=== PATIENT | male | born 1940 | race Hispanic/Latino ===

== ENCOUNTER 2017-05-22 05:51 | Inpatient (IN) | payer MEDICARE ==
[2017-05-22] MEDS ORDERED: CEFAZOLIN/Water 2 GM/20 ML SYRINGE ONE ×2 (06:39→14:56)
[2017-05-22 06:44] LABS: Hemoglobin 12.5 g/dL (14.0-18.0); Mean Corpuscular HGB CONC 32.1 g/dL (32.0-36.0); Mean Corpuscular Hemoglobin 31.2 pg (27.0-31.0); Mean Corpuscular Volume 97.3 fl (80.0-94.0); Mean Platelet Volume 5.7 fL (7.4-10.4); Platelet Count 323 thou/uL (130-400); RBC Distribution Width 11.7 % (11.5-14.5); Red Blood Cell (RBC) Count 4.02 mill/uL (4.70-6.10); White Blood Cell (WBC) Count 8.4 thou/uL (4.8-10.8)
[2017-05-22] MEDS ORDERED: Fentanyl 100 MCG/2 ML VIAL ONE ×2 (06:50→09:41)
[2017-05-22 06:58] LABS: Anion Gap 13 mmol/L (10-20); BUN (Urea Nitrogen) 17 mg/dL (8.4-25.7); Calc. Creatinine Clearance 80 mL/min (70-130); Calcium 10.1 mg/dL (7.8-10.44); Carbon Dioxide 26 mmol/L (23-31); Chloride 101 mmol/L (98-107); Estimated GFR-MDRD 87; Glucose 99 mg/dL (83-110); Potassium 4.1 mmol/L (3.5-5.1); Sodium 136 mmol/L (136-145)
[2017-05-22 07:01] LABS: PTT 30.9 SEC (22.9-36.1); Prothrombin Time 13.6 SEC (12.0-14.7)
[2017-05-22] MEDS ORDERED: Bupivacaine/Epinephrine 0.25% 30 ML VIAL ONE (07:41)
[2017-05-22] MEDS ORDERED: Talc 30 GM AEROSOL CAN ONE (08:45)
[2017-05-22] MEDS ORDERED: Propofol 200 MG/20 ML VIAL ONE (09:00)
[2017-05-22] MEDS ORDERED: Ondansetron HCl/PF 4 MG/2 ML Vial ONE (09:00)
[2017-05-22] MEDS ORDERED: PHENYLEPHRINE-NS 100 MCG/ML 10 ML SYRINGE ONE (09:00)
[2017-05-22] MEDS ORDERED: Glycopyrrolate 0.2 MG/ML 5 ML SYRINGE ONE (09:00)
[2017-05-22] MEDS ORDERED: Lidocaine 1% PF 5 ML VIAL ONE (09:00)
--- NOTE | 2017-05-22 09:17 | OP ---
DATE OF PROCEDURE: 05/22/2017 PREOPERATIVE DIAGNOSIS: Recurrent right pleural effusion. POSTOPERATIVE DIAGNOSIS: Recurrent right pleural effusion. PROCEDURE: 1. Right thoracoscopy with multiple biopsies of chest wall implants. 2. Wedge resection of right lower lobe. 3. Mechanical and talc pleurodesis. 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 1.5 liters of fluid within the chest on e ntering the chest - this was also sent for cytology again. DRAINS: 32-Welsh chest tube x1. PROCEDURE IN DETAIL: After consent was obtained, the patient was brought to the operating room and p laced in the supine position on the operating room table. Appropriate anesthetic monitor was placed and general endotracheal anesthesia induced. A double lumen tube was placed and a flexible fiberopti c bronchoscopy was performed to confirm positioning. The patient was then positioned in the left lat eral decubitus position. Joints were appropriately padded and SCDs used. Right chest wall was prepped and draped in usual sterile fashion. Skin incision was made in the ante rior axillary line inferiorly on the right chest wall and 11 Welsh port placed. The camera was inse rted. There were implants in the upper and lower chest that were noted. Multiple areas were biopsie d. Frozen section returned as above. There was also implants in the right lower lobe which a small wedge resection was performed taking a small portion of the right lower lobe to send for pathologic e xam. After evacuating all the fluid within the chest approximately 1.5 liters had been taken. The chest wall was then mechanically abraded. 5 grams of talc was infused. A 32-Welsh chest tubes placed through the anterior port site to the apex and secured with silk suture. The lung was then re expanded. The 2 separate port sites were then closed in layers and Dermabond applied to the skin. T he patient was awakened, extubated, and transferred to the recovery room in stable condition. Needle , sponge, and instrument counts were all reported as correct at the end of the procedure.
[2017-05-22] MEDS ORDERED: HYDROcodone/Acetaminophen 5/325 mg Tablet PO PRN (09:52)
[2017-05-22] MEDS ORDERED: Ondansetron HCl/PF 4 MG/2 ML Vial IVP PRN ×2 (09:52→09:53)
[2017-05-22] MEDS ORDERED: Insulin Regular 300 UNITS/3 ML VIAL SC PRN (09:52)
[2017-05-22] MEDS ORDERED: Fentanyl 100 MCG/2 ML VIAL SLOW IVP PRN ×2 (09:52)
[2017-05-22] MEDS ORDERED: Promethazine HCl 25 MG/ML VIAL IM PRN (09:53)
[2017-05-22] MEDS ORDERED: Promethazine HCl 25 MG/ML VIAL SLOW IVP PRN (09:53)
[2017-05-22] MEDS ORDERED: Morphine 4 MG/ML VIAL SLOW IVP PRN ×2 (11:30)
--- NOTE | 2017-05-22 12:16 | RAD ---
PORTABLE AP CHEST XRAY: DATE: 05/22/17. HISTORY: Post thoracostomy. COMPARISON: 04/16/17. FINDINGS: Postsurgical changes related to CABG are again seen. There has been interval placement of a right-si ded thoracostomy tube with the tip overlying the right suprahilar region. The previously noted moder ately large right pleural effusion has almost completely resolved. There is mild pleural-based densi ty on the right primarily at the right lung base, which may be related to either a small amount of re sidual pleural fluid or pleural thickening. Atelectasis is present at the right lung base. Minimal pleural-based density is also seen at the right lung apex. No pneumothorax is visualized. The left lung remains clear. Cardiac silhouette is within normal limits. There is prominence of the right hi lar structures, but this may be attributable to pleural fluid and/or pleural thickening superimposed on the right cardiac border. However, given the asymmetry and appearance of this finding, continued followup is recommended and PA and lateral chest x-ray may be helpful. No other interval change. IMPRESSION: 1. Interval placement of a right-sided thoracostomy tube with significant interval improvement a nd almost complete resolution of the right pleural effusion. 2. Pleural-based densities predominantly laterally which extend to the right lung apex which may be related to either a small amount of residual pleural fluid versus pleural thickening. In additio n, there is prominence along the right cardiac border and right hilar region which is asymmetric comp ared to the left. This could also be related to a combination of pleural-based density and the right cardiac border. However, followup examination is recommended. POS: [facility]
[2017-05-22] MEDS ORDERED: HYDROcodone/Acetaminophen 5/325 mg Tablet ONE (14:27)
[2017-05-22 16:58] VITALS: BMI 25.1
[2017-05-22] MEDS: Sodium Chloride 0.9% 1,000 ML IV SCH ×2 (17:18→21:23)
[2017-05-22] MEDS: CEFAZOLIN/Water 2 GM/20 ML SYRINGE SLOW IVP SCH ×2 (17:18→21:44)
[2017-05-22] MEDS: Atorvastatin Calcium 20 MG TAB PO SCH (21:24)
[2017-05-22] MEDS: Metoprolol Tartrate 25 MG TAB PO SCH (21:30)
[2017-05-23] MEDS: HYDROcodone/Acetaminophen 5/325 mg Tablet PO PRN ×4 (00:29→19:52)
[2017-05-23 05:11] LABS: #Lymphocytes 1.3 thou/uL (1.20-3.40); %Basophils 0.2 % (0.0-1.0); %Eosinophils 0.2 % (0.0-10.0); %Lymphocytes 9.3 % (21.0-51.0); %Monocytes 6.9 % (0.0-10.0); %Neutrophils 83.4 % (42.0-75.0); Hemoglobin 11.3 g/dL (14.0-18.0); Mean Corpuscular HGB CONC 32.3 g/dL (32.0-36.0); Mean Corpuscular Hemoglobin 31.2 pg (27.0-31.0); Mean Corpuscular Volume 96.5 fl (80.0-94.0); Mean Platelet Volume 6.2 fL (7.4-10.4); Platelet Count 284 thou/uL (130-400); RBC Distribution Width 11.8 % (11.5-14.5); Red Blood Cell (RBC) Count 3.62 mill/uL (4.70-6.10); White Blood Cell (WBC) Count 14.4 thou/uL (4.8-10.8)
[2017-05-23 05:39] LABS: Anion Gap 9 mmol/L (10-20); BUN (Urea Nitrogen) 14 mg/dL (8.4-25.7); Calc. Creatinine Clearance 89 mL/min (70-130); Calcium 8.7 mg/dL (7.8-10.44); Carbon Dioxide 26 mmol/L (23-31); Chloride 101 mmol/L (98-107); Estimated GFR-MDRD Greater than 90; Glucose 126 mg/dL (83-110); Potassium 4.1 mmol/L (3.5-5.1); Sodium 132 mmol/L (136-145)
[2017-05-23] MEDS: Levothyroxine Sodium 25 MCG TAB PO SCH (05:51)
[2017-05-23] MEDS: CEFAZOLIN/Water 2 GM/20 ML SYRINGE SLOW IVP SCH (05:51)
[2017-05-23] MEDS: metFORMIN 500 MG TAB PO SCH (08:13)
[2017-05-23] MEDS: Metoprolol Tartrate 25 MG TAB PO SCH ×2 (08:14→20:03)
--- NOTE | 2017-05-23 10:41 | RAD ---
FRONTAL VIEW CHEST: COMPARISON: Previous day. INDICATION: Status post thoracotomy. FINDINGS: Redemonstration of a right-sided chest tube. There has been increased opacity throughout the right l rima. The left lung is grossly stable. Cardiac silhouette remains prominent. IMPRESSION: Progressive opacity of the right chest a component of which is compatible with pleural fluid. Right chest tube remains. Continued followup is warranted. POS: [facility]
[2017-05-23] MEDS: Atorvastatin Calcium 20 MG TAB PO SCH (20:03)
[2017-05-24] MEDS: Levothyroxine Sodium 25 MCG TAB PO SCH (06:26)
[2017-05-24] MEDS: Metoprolol Tartrate 25 MG TAB PO SCH ×2 (08:41→22:09)
[2017-05-24] MEDS: metFORMIN 500 MG TAB PO SCH (08:42)
[2017-05-24] MEDS ORDERED: Diltiazem 125 MG in Sodium Chloride 0.9% 100 ML IVPB SCH (08:45)
[2017-05-24 10:06] LABS: Bilirubin Negative (Negative); Blood, Urine Negative (Negative); Clarity CLEAR (Clear); Glucose, Urine (Dipstick) Negative (Negative); Leukocyte Negative (Negative); Nitrite Negative (Negative); Protein, Urine (Dipstick) Negative (Neg-Trace); Specific Gravity, Urine 1.013 (1.002-1.036); Urobilinogen 0.2 mg/dL (0.2-1.0); pH, Urine 6.5 (5.0-9.0)
[2017-05-24 10:09] LABS: Bacteria/HPF None Seen HPF (None Seen); Hyaline Casts/LPF 0-3 HYALINE CAST LPF (0-3 Hyaline); RBC/HPF 0-3 HPF (0-3); Squamous Epithelial None Seen HPF (0-3); WBC/HPF None Seen HPF (0-3)
[2017-05-24] MEDS ORDERED: Dronedarone HCl 400 MG TAB PO SCH (11:15)
[2017-05-24] MEDS: HYDROcodone/Acetaminophen 5/325 mg Tablet PO PRN ×2 (11:35→22:17)
--- NOTE | 2017-05-24 13:53 | CON ---
DATE OF CONSULTATION: 05/24/2017 HISTORY OF PRESENT ILLNESS: This patient is a 76-year-old gentleman who underwent a lung surgery and was noted to have a rapid irregular heart rate rhythm. The patient has a long history of coronary artery disease. He is status post coronary artery bypass surgery and aortic valve replacement. The patient states he also has a history of atrial fibrillation. The patient has declined previously to be on anticoagulation therapy. The patient was in his usual state of health, but has developed progressive dyspnea. Yesterday he underwent a surgical wedge resection of the right lower lung. The patient developed an irregular heart rhythm. He denied having any palpitations or chest discomfort. PAST MEDICAL HISTORY: 1. Coronary artery disease. 2. Status post coronary artery bypass surgery. 3. History of aortic valve replacement. 4. Hypertension. 5. Diabetes mellitus. 6. Dyslipidemia. PAST SURGICAL HISTORY: Cholecystectomy.and coronary artery bypass surgery. SOCIAL HISTORY: He is a nonsmoker. FAMILY HISTORY: There is no strong family history of heart disease. MEDICATIONS ON ADMISSION: Zocor 40 at bedtime, metoprolol 25 daily, metformin 500 b.i.d., Synthroid 25 mcg daily, enalapril 2.5 daily, and aspirin 81 daily. ALLERGIES: No known drug allergies. REVIEW OF SYSTEMS: A 10-point system unremarkable. No history of easy bruising or bleeding, bright red blood per rectum. PHYSICAL EXAMINATION: GENERAL: A thin gentleman in no acute distress. VITAL SIGNS: Blood pressure 115/64. NECK: No jugular venous distention. LUNGS: Coarse breath sounds bilateral with a few crackles in the right base. HEART: Regular rate and rhythm. Normal S1, S2. A 1/6 systolic murmur. ABDOMEN: Nondistended. EXTREMITIES: Showed trace edema. SKIN: Warm and dry. NEUROLOGIC EXAM: Nonfocal. VASCULAR: Radial pulses are 2+. LABORATORY DATA: Sodium 132, potassium 4.1, chloride 104, bicarbonate 26, BUN 14, creatinine is 0.76, glucose is 126. His white blood cell count 14.4, hemoglobin 11.3, hematocrit 34.9, platelets are 284. research lab assistant revealed atrial fibrillation with a rapid ventricular response. IMPRESSION: 1. Recurrent atrial fibrillation. 2. Status post lung resection. 3. History of coronary artery bypass surgery and aortic valve replacement. 4. Diabetes mellitus. 5. Hypertension. 6. Dyslipidemia. This gentleman developed postoperative atrial fibrillation. He has previously declined anticoagulation therapy. With his recent surgery, it is imperative that with he remains in normal sinus rhythm. We would not recommend anticoagulation at this time. We would start the patient on antiarrhythmic therapy to hopefully maintain sinus rhythm. The patient will need to have close monitoring of his blood pressure and heart rate. We will start Multaq. We will follow this patient with you through his hospitalization. LEROY
--- NOTE | 2017-05-24 15:08 | RAD ---
PORTABLE CHEST: History: Post thoracotomy. Follow up. ICU. Comparison: 05-23-17 FINDINGS: Right chest tube again noted. Right pleural fluid and pleural opacification appears stable. Left lung remains clear. IMPRESSION: No acute interval change from yesterday. POS: [facility]
[2017-05-24] MEDS: Dronedarone HCl 400 MG TAB PO SCH (17:24)
[2017-05-24] MEDS: Atorvastatin Calcium 20 MG TAB PO SCH (22:09)
[2017-05-25] MEDS: Levothyroxine Sodium 25 MCG TAB PO SCH (05:56)
--- NOTE | 2017-05-25 08:17 | RAD ---
PORTABLE AP CHEST: Date: 05-25-17 History: Fever. Post pleurodesis. Comparison: 05-24-17 FINDINGS: Right sided thoracostomy tube remains in place and unchanged in position. No pneumothorax is present. Opacification right lung apex and to a less degree along the right lateral chest wall is again seen with increased density at the right lung base and in the region of the minor fissure are again presen t which may be related to pleural fluid. Atelectasis is a possibility. There appear to be calcified p leural based plaques at the left lung base. Left lung is otherwise clear. Median sternotomy wires are again seen. There is evidence of prior granulomatous disease. No other interval change. IMPRESSION: 1. Right sided thoracostomy tube remains in position without evidence of pneumothorax. There are stab le pleural based densities on the right with greater band like opacity in the right mid lung zone. Fi ndings may be related to pleural fluid and parenchymal changes in the right mid lung zone could be re lated to a combination of atelectasis and pleural fluid although developing infiltrate cannot be excl uded. 2. Remote right sided rib fractures likely related to prior surgery. POS: [facility]
[2017-05-25] MEDS: Metoprolol Tartrate 25 MG TAB PO SCH ×2 (08:34→20:28)
[2017-05-25] MEDS: Dronedarone HCl 400 MG TAB PO SCH ×2 (08:34→16:32)
[2017-05-25] MEDS: metFORMIN 500 MG TAB PO SCH (08:35)
[2017-05-25] MEDS: Atorvastatin Calcium 20 MG TAB PO SCH (20:29)
[2017-05-26] MEDS: Levothyroxine Sodium 25 MCG TAB PO SCH (05:03)
[2017-05-26 07:17] VITALS: TEMP 98.3
--- NOTE | 2017-05-26 07:46 | DIS ---
DATE OF ADMISSION: 05/22/2017 DATE OF DISCHARGE: 05/26/2017 DIAGNOSES: Right-sided recurrent pleural effusion. PROCEDURES: Right thoracoscopy with pleural and right lower lobe lung biopsies - pathology returned as mesothelioma. HISTORY OF HOSPITAL STAY: Mr. Lala is a 76-year-old gentleman who underwent 2 separate thoracen tesis. He had not had a diagnosis made from his thoracentesis. [facility]. At the time of thoracoscopy he was found to have multiple pleural implants and implants i n his right lower lobe. Biopsies of both were taken and pathology has recently returned as mesotheli tejinder. He was set up with Dr. Conner as an outpatient on . Subsequent to his surgery, he had intermittent tachy atrial arrhythmias. He was placed on Multaq. T he patient has a history of tachy arrhythmias in the past and has refused anticoagulation. He is being discharged home today. Follow up has been set up with Dr. Conner and myself and his [facility] ball fringe machine operator, Dr. Espinosa.
--- NOTE | 2017-05-26 08:24 | RAD ---
CHEST ONE VIEW: History: Fever. Chest surgery. Pleurodesis. Comparison: 05-25-17 FINDINGS: Cardiac silhouette is magnified by projection. Pulmonary vasculature remains upper limits of normal. Right thoracostomy tube is no longer visible. Small amount of right pleural fluid is similar in appea gil to the prior study. Parenchymal opacity at the right base is stable. Post-operative changes of the mediastinum are apparent. monitor and storage bin tender leads overlie the chest. IMPRESSION: 1. Interval removal of the right thoracostomy tube. No evidence of pneumothorax. Otherwise, stable po st-operative appearance of the chest. POS: [facility]
[2017-05-26] MEDS: Dronedarone HCl 400 MG TAB PO SCH (09:02)
[2017-05-26 09:03] VITALS: BP 125/79
[2017-05-26] MEDS: metFORMIN 500 MG TAB PO SCH (09:03)
[2017-05-26] MEDS: Metoprolol Tartrate 25 MG TAB PO SCH (09:03)
--- NOTE | 2017-05-28 19:38 | EKG ---
Test Reason : PREOP Blood Pressure : / mmHG Vent. Rate : 082 BPM Atrial Rate : 082 BPM P-R Int : 000 ms QRS Dur : 090 ms QT Int : 346 ms P-R-T Axes : 006 -01 084 degrees QTc Int : 404 ms Sinus rhythm with marked sinus arrhythmia Possible Inferior infarct , age undetermined T wave abnormality, consider anterior ischemia Abnormal ECG When compared with ECG of 08-JUN-2016 09:44, No significant change was found Confirmed by ROSANGELA ROY (2) on 05/28/2017 7:38:06 PM Referred By: Milvia MCCRACKEN Confirmed By:ROSANGELA ROY
== END 2017-05-26 10:25 | disposition home or self-care (01) | DRG 164 ==
LOC: SURG A 05:51 → IMCU/EMU 16:22
PROVIDERS: ADMIT Thoracic Surgery (Cardiothoracic Vascular Surgery); ATTEND Thoracic Surgery (Cardiothoracic Vascular Surgery)
PROC: 0BTF4ZZ Resection of Right Lower Lung Lobe, Percutaneous Endoscopic Approach (ICD-10-PCS; principal; 2017-05-22)
PROC: 0B5N4ZZ Destruction of Right Pleura, Percutaneous Endoscopic Approach (ICD-10-PCS; 2017-05-22)
PROC: 0BBN4ZX Excision of Right Pleura, Percutaneous Endoscopic Approach, Diagnostic (ICD-10-PCS; 2017-05-22)
PROC: 3E0L4GC Introduction of Other Therapeutic Substance into Pleural Cavity, Percutaneous Endoscopic Approach (ICD-10-PCS; 2017-05-22)
PROC: 0W9930Z Drainage of Right Pleural Cavity with Drainage Device, Percutaneous Approach (ICD-10-PCS; 2017-05-22)
DX: C45.0 Mesothelioma of pleura (principal); J91.8 Pleural effusion in other conditions classified elsewhere; C45.7 Mesothelioma of other sites; I48.2 Chronic atrial fibrillation; I97.89 Other postprocedural complications and disorders of the circulatory system, not elsewhere classified; E11.9 Type 2 diabetes mellitus without complications; I25.10 Atherosclerotic heart disease of native coronary artery without angina pectoris; Z95.2 Presence of prosthetic heart valve; Z95.1 Presence of aortocoronary bypass graft; I10 Essential (primary) hypertension; Z79.84 Long term (current) use of oral hypoglycemic drugs; Z79.82 Long term (current) use of aspirin; E78.2 Mixed hyperlipidemia
CPT/HCPCS: 36415; 36416; 71045; 80048; 81001; 85025; 85027; 85610; 85730; 87040; 87086; 88112; 88305; 88307; 88325; 88331; 88341; 88342; 88360; 93005; 93010; J1642; J2001; J2405; J2704; J3010; J7050

== ENCOUNTER 2017-06-04 08:35 | Outpatient (CLI) | payer MEDICARE ==
--- NOTE | 2017-06-04 12:10 | CT ---
CT HEAD WITH AND WITHOUT CONTRAST: Technique: Multiple axial tomograms were obtained through the head pre and post IV contrast enhanceme nt. History: Mesothelioma of pleura. Comparison: Noncontrast CT head, 06-08-16. FINDINGS: Mild cortical volume loss. No evidence of hemorrhage, infarct, or mass. No abnormal enhancement identified on post contrast exam. IMPRESSION: No evidence of acute process. POS: [facility]
--- NOTE | 2017-06-04 13:46 | PET ---
RADIONUCLIDE PET SCAN WITH CT ATTENUATION CORRECTION AND SPECT IMAGING: History: Mesothelioma. Recent surgery. Initial staging. FINDINGS: Physiologic uptake of radiotracer is present throughout the enteric system and along each urinary tra ct. Post-operative changes of the right thorax are consistent with prior pleurodesis procedure. Uptak e associated with the remaining pleural reaction is 8.1. Moderate amount of right pleural fluid remai ns. Calcified pleural plaques are partially visualized. No hyper metabolic mediastinal adenopathy is apparent. No abnormal uptake is apparent within the abdomen. The nondiagnostic CT attenuation correct ion images show prominent calcification throughout the arterial structures. The gallbladder is surgic ally absent. Cysts arise from the cortex of the left kidney. There is also distention of the left hui al collecting system and ureter. Distal ureter is decompressed. Exact point of transition is not appa rent. Cause is not apparent. Prostate gland is enlarged. IMPRESSION: 1. Post-operative changes of the right thoracic cavity with residual fluid. Metabolic activity shows a maximum SUV of up to 8.1. No residual disease or metastatic disease are suspected. 2. Atherosclerosis. 3. Mild left hydroureteronephrosis. Cause is not evident. POS: [facility]
[2017-06-04] MEDS ORDERED: Iopamidol 370 76% 100 ML VIAL ONE (16:29)
== END 2017-06-04 08:36 | disposition home or self-care (01) ==
LOC: CT 08:35
PROVIDERS: ATTEND Internal Medicine Hematology & Oncology
DX: C45.0 Mesothelioma of pleura (principal); I70.90 Unspecified atherosclerosis; N13.30 Unspecified hydronephrosis; Z98.890 Other specified postprocedural states
CPT/HCPCS: 70470; 78815; A9552

== ENCOUNTER 2017-10-09 11:58 | Outpatient (CLI) | payer MEDICARE ==
[~2017-10-09 11:58] MED LIST: Iopamidol 370 76% 100 ML VIAL ONE
== END 2017-10-09 11:59 | disposition home or self-care (01) ==
LOC: BICCT 11:58
DX: C45.0 Mesothelioma of pleura (principal); J90 Pleural effusion, not elsewhere classified; J92.9 Pleural plaque without asbestos; R93.2 Abnormal findings on diagnostic imaging of liver and biliary tract
CPT/HCPCS: 71260

== ENCOUNTER 2017-12-15 08:55 | Outpatient (CLI) | payer MEDICARE | END 2017-12-15 08:56 | disposition home or self-care (01) | LOC: BICCT 08:55 | PROVIDERS: ATTEND Internal Medicine Hematology & Oncology | DX: C45.0 Mesothelioma of pleura (principal); J92.9 Pleural plaque without asbestos | CPT/HCPCS: 71250; 82565 ==

== ENCOUNTER 2018-03-03 11:01 | Outpatient (CLI) | payer MEDICARE ==
--- NOTE | 2018-03-03 15:28 | CT ---
CT OF THE THORAX WITHOUT CONTRAST: Date: 03/03/18 INDICATION: History of mesothelioma of the pleura, status post chemotherapy and lung scraping. Patient is having severe right-sided chest pain. COMPARISON: Prior CT of the thorax dated 12/15/17. FINDINGS: The pleural thickening involving the right hemithorax consistent with pleural based malignancy is mor e prominent than on the comparison examination. Index soft tissue nodular complete involving the righ t lower medial mediastinum on image 7 of series 2 now measures 10.7 x 4.7 cm, where previously it jcarlos sured approximately 7.2 x 2.3 cm. Nodular prominence within the right major fissure measuring 3.2 cm on image of 47 of series 3 previously measured 1.9 cm. There is postsurgical change of aortic valve replacement. There is stable ectasia of the ascending ao rta. There is stable postsurgical change of prior CABG. Stable calcified lymph nodes are seen within the subcarinal region. Stable calcified lymph nodes seen within the right paratracheal region and pre vascular region. There is stable pleural calcifications involving both hemithoraces. Hypodensity invo lving the central right hepatic lobe is stable. There is stable prominence bilateral hydronephrosis. IMPRESSION: 1. Worsening malignancy within the right hemithorax with more prominent nodularity seen involving th e pleural lining, as well as the right major fissure. 2. Stable prominent bilateral hydronephrosis. Cause of hydronephrosis is not determined on current e xamination. Dedicated CT of the abdomen and pelvis utilizing IV contrast may be helpful for improved characterization. 3. Stable hypodensity within the central right hepatic lobe measuring up to 2.2 cm. 4. Findings of prior granulomatous disease. 5. Postsurgical change of prior aortic valvular placement. 6. 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 POS: [facility]
== END 2018-03-03 11:02 | disposition home or self-care (01) ==
LOC: BICCT 11:01
PROVIDERS: ATTEND Family Medicine
DX: R07.81 Pleurodynia (principal); C80.1 Malignant (primary) neoplasm, unspecified; C45.0 Mesothelioma of pleura; N13.30 Unspecified hydronephrosis; K76.89 Other specified diseases of liver; J94.8 Other specified pleural conditions; Z95.2 Presence of prosthetic heart valve; Z79.899 Other long term (current) drug therapy
CPT/HCPCS: 71250; 82565